=== PATIENT | male | born 1995 | race American Indian/Alaskan Native ===

== ENCOUNTER 2021-03-11 11:48 | Emergency (ER) | payer MEDICAID, OTHER ==
[2021-03-11 12:59] VITALS: BP 149/84
--- NOTE | 2021-03-11 14:41 | Emergency Department Report ---
- General Chief Complaint: Upper Respiratory Infection Stated Complaint: COUGH WITH BLOOD IN MUCUS Source: patient Mode of arrival: Ambulatory Limitations: No Limitations - History of Present Illness Initial Comments: The patient was evaluated in the emergency department for symptoms described in the history of present illness. He/she was evaluated in the context of the global COVID-19 pandemic, which necessitated consideration that the patient might be at risk for infection with the virus that causes COVID-19. Institutional protocols and algorithms that pertain to the evaluation of patients at risk for COVID-19 are in a state of rapid change based on information released by regulatory bodies including the CDC and federal and state organizations. These policies and algorithms were followed during the patient's care in the emergency department. Please note that these policies, procedures and recommendations changed on a rapid basis. 26-year-old morbid obese -[place]ian male presents to the emergency room complaining of a cough that he has had for 1 week. Patient is not vaccinated. He states that he had blood-tinged mucus with his cough yesterday. Denies any fever chills no nausea no vomiting no chest pain no Covid exposure. Denies any past medical history currently takes no medications on a daily basis. He has tried taking natl-qzg-xojpeoj cough and cold medications. He does have a primary care provider Dr. Ban Blanton. Complaint: cough Severity scale (0 -10): 0 Consistency: intermittent Improves With: nothing Worsens With: nothing Associated Symptoms: denies other symptoms - Related Data Previous Rx's Medication Instructions Recorded Last Taken Type Ibuprofen [Motrin] 600 mg PO Q8H PRN #60 tablet 10/19/13 Unknown Rx cephALEXin [Keflex] 500 mg PO Q6H #40 capsule 10/19/13 Unknown Rx Allergies Allergy/AdvReac Type Severity Reaction Status Date / Time No Known Allergies Allergy Verified 03/11/21 12:57 ED Review of Systems ROS: Stated complaint: COUGH WITH BLOOD IN MUCUS Other details as noted in HPI ED Past Medical Hx - Past Medical History Previous Medical History?: No Hx Asthma: Yes - Surgical History Additional Surgical History: ROATOR CUFF - Social History Smoking Status: Never Smoker Substance Use Type: None - Medications Home Medications: Home Medications Medication Instructions Recorded Confirmed Last Taken Type Ibuprofen [Motrin] 600 mg PO Q8H PRN #60 tablet 10/19/13 Unknown Rx cephALEXin [Keflex] 500 mg PO Q6H #40 capsule 10/19/13 Unknown Rx ED Physical Exam - General Limitations: No Limitations General appearance: alert, in no apparent distress - Head Head exam: Present: atraumatic, normocephalic - Eye Eye exam: Present: normal appearance - ENT ENT exam: Present: mucous membranes moist, normal external ear exam - Neck Neck exam: Present: normal inspection, full ROM - Respiratory Respiratory exam: Present: normal lung sounds bilaterally. Absent: respiratory distress, wheezes, rhonchi, chest wall tenderness, accessory muscle use - Cardiovascular Cardiovascular Exam: Present: regular rate, normal rhythm. Absent: systolic murmur, diastolic murmur, rubs, gallop - Rectal Rectal exam: Present: deferred - Extremities Exam Extremities exam: Present: normal inspection - Back Exam Back exam: Present: normal inspection - Neurological Exam Neurological exam: Present: alert, oriented X3, normal gait - Psychiatric Psychiatric exam: Present: normal affect, normal mood - Skin Skin exam: Present: warm, dry, intact, normal color. Absent: rash ED Course Vital Signs 03/11/21 12:58 Temperature 98.4 F Pulse Rate 61 Respiratory 18 Rate Blood Pressure 149/84 O2 Sat by Pulse 97 Oximetry ED Medical Decision Making - Medical Decision Making 26-year-old morbid obese -[place]ian male presents to the emergency room complaining of a cough that he has had for 1 week. Patient is not vaccinated. He states that he had blood-tinged mucus with his cough yesterday. Denies any fever chills no nausea no vomiting no chest pain no Covid exposure. Denies any past medical history currently takes no medications on a daily basis. He has tried taking [id number] cough and cold medications. He does have a primary care provider Dr. Ban Blanton. Patient has a normal physical examination has not cough since being in the exam room. Able to speak in complete sentences not gasping for air no pleurisy. Patient be discharged home to take [id number] Claritin and or Mucinex and to follow-up with his primary care provider Critical care attestation.: If time is entered above; I have spent that time in minutes in the direct care of this critically ill patient, excluding procedure time. ED Disposition Clinical Impression: Cough Disposition: 01 HOME / SELF CARE / HOMELESS Is pt being admited?: No Does the pt Need Aspirin: No Condition: Stable Instructions: Cough, Adult, [id number] Additional Instructions: You can try [id number] Claritin or Mucinex follow-up with your primary care provider Referrals: BAN BLANTON MD [Referring] - 3-5 Days Forms: Work/School Release Form(ED) Time of Disposition: 14:44
== END 2021-03-11 15:52 | disposition home or self-care (01) ==
LOC: ED 11:48
DX: R04.2 Hemoptysis (principal); J45.909 Unspecified asthma, uncomplicated; Z98.890 Other specified postprocedural states
CPT/HCPCS: 99281